=== PATIENT | female | born 1940 | race Caucasian/White ===

== ENCOUNTER 2018-02-08 09:04 | Outpatient (CLI) | payer MEDICARE, OTHER ==
--- NOTE | 2018-02-08 09:34 | RAD ---
TWO VIEW CHEST: Comparison: None. Indication: Dyspnea. FINDINGS: Cardiac silhouette is upper limits of normal in size. There is prominent thoracic kyphosis. No consol idation, effusion, or discrete pneumothorax. IMPRESSION: 1. No focal consolidation. 2. Mild enlargement of the cardiac silhouette. POS: C
== END 2018-02-08 09:05 | disposition home or self-care (01) ==
LOC: RAD 09:04
PROVIDERS: ATTEND Internal Medicine Critical Care Medicine
DX: R06.00 Dyspnea, unspecified (principal); I51.7 Cardiomegaly
CPT/HCPCS: 71046